=== PATIENT | male | born 1960 | race Caucasian/White ===

== ENCOUNTER → 2020-03-18 | Outpatient (CLI) | payer OTHER ==
[~2020-03-18] MED LIST: AMOX-CLAV PO; ANDROGEL 1.62% TD; CYMBALTA60 MG PO; FLOMAX 0.4 MG0.4 MG PO; LISINOPRIL10 MG PO; MULTIVITAMIN1 EACH PO; NABUMETONE750 MG PO; PERCOCET 5-3251 EACH PO; PROTONIX40 MG PO
== END ==
LOC: NM 07:33
DX: I48.91 Unspecified atrial fibrillation (principal); I10 Essential (primary) hypertension; R94.31 Abnormal electrocardiogram [ECG] [EKG]; R94.39 Abnormal result of other cardiovascular function study
CPT/HCPCS: 78452; A9502; J2785

== ENCOUNTER 2020-03-21 10:32 | Emergency (ER) | payer OTHER ==
[2020-03-21 12:03] LABS: HEMOGLOBIN 15.3 gm/dl (14.0-17.5); RED BLOOD COUNT 5.01 M/UL (4.20-5.50); WHITE BLOOD COUNT 11.4 K/UL (4.5-11.0)
[2020-03-21 12:23] LABS: BUN/CREATININE RATIO 11 (0-10)
== END 2020-03-21 22:35 | disposition short-term general hospital (02) ==
LOC: ER1 10:32
PROVIDERS: Physician Assistant
DX: I48.91 Unspecified atrial fibrillation (principal); R33.9 Retention of urine, unspecified; Z87.442 Personal history of urinary calculi; Z85.528 Personal history of other malignant neoplasm of kidney; Z88.5 Allergy status to narcotic agent; Z79.82 Long term (current) use of aspirin; Z20.822 Contact with and (suspected) exposure to COVID-19
CPT/HCPCS: 36415; 71045; 80048; 81001; 82550; 82553; 84439; 84443; 84484; 85025; 87086; 93005; 96374; 96375; 99285; J2270; J2405; U0002

== ENCOUNTER → 2020-06-15 | Outpatient (CLI) | payer OTHER | LOC: HEART 5 06-02 13:00 → ECHO 06-02 13:00 → HEART 5 06-02 14:30 | DX: I48.91 Unspecified atrial fibrillation (principal); I07.1 Rheumatic tricuspid insufficiency | CPT/HCPCS: 93306 ==

== ENCOUNTER → 2021-02-20 | Outpatient (CLI) | payer MEDICARE ==
[~2021-02-20] MED LIST changes: +ASPIRIN81 MG PO; +CARVEDILOL6.25 MG PO; +ELIQUIS2.5 MG PO; +LIPITOR40 MG PO; +MULTAQ 400 MG400 MG PO; +SINGULAIR10 MG PO
[2021-02-20 10:37] LABS: HEMOGLOBIN 14.8 gm/dl (14.0-17.5); RED BLOOD COUNT 4.89 M/UL (4.20-5.50); WHITE BLOOD COUNT 7.1 K/UL (4.5-11.0)
[2021-02-20 11:06] LABS: BUN/CREATININE RATIO 12 (0-10)
== END ==
LOC: CATH 09:40 → EDSTATUS 11:00
PROVIDERS: Internal Medicine Cardiovascular Disease
DX: I48.19 Other persistent atrial fibrillation (principal); I10 Essential (primary) hypertension; I47.2 Ventricular tachycardia; E78.5 Hyperlipidemia, unspecified; K22.70 Barrett's esophagus without dysplasia; G89.29 Other chronic pain; K21.9 Gastro-esophageal reflux disease without esophagitis; D72.820 Lymphocytosis (symptomatic); E55.9 Vitamin D deficiency, unspecified; F41.9 Anxiety disorder, unspecified; F32.A Depression, unspecified; G47.33 Obstructive sleep apnea (adult) (pediatric); Z20.822 Contact with and (suspected) exposure to COVID-19; Z79.01 Long term (current) use of anticoagulants; Z79.899 Other long term (current) drug therapy; Z98.890 Other specified postprocedural states; Z87.891 Personal history of nicotine dependence
CPT/HCPCS: 80048; 83735; 85027; 92960; 93005; J1200; J1742; J2250; J2310; J3010; U0002

== ENCOUNTER → 2021-03-15 | Outpatient (CLI) | payer MEDICARE | LOC: HEART 5 13:49 | DX: R06.02 Shortness of breath (principal) | CPT/HCPCS: 94010 ==